=== PATIENT | male | born 1970 | race African-American/Black ===

== ENCOUNTER 2017-11-28 17:45 | Emergency (ER) | payer OTHER ==
[~2017-11-28] VITALS: Ht 172.7 cm; Wt 74.8 kg
[~2017-11-28 17:45] MED LIST: CYCLOBENZAPRINE10 M1 PO; NAPROXEN250 M1 PO
[2017-11-28 18:10] VITALS: BP 134/94
--- NOTE | 2017-11-28 18:45 | RADIOLOGY REPORT ---
EXAMINATION: XR WRIST, LEFT CLINICAL INFORMATION: Left wrist pain. Trauma. COMPARISON: None TECHNIQUE: Four views of the left wrist. FINDINGS: No fracture. No dislocation. Bone and joint are normal. IMPRESSION: Normal left wrist.
--- NOTE | 2017-11-28 19:26 | ED HAND/WRIST INJURY COMPLAINT ---
History of Present Illness General Chief Complaint: Hand or Wrist Injury Stated Complaint: LEFT WRIST INJURY Source: patient Exam Limitations: no limitations Vital Signs & Intake/Output Vital Signs & Intake/Output Vital Signs Date Time Temp Pulse Resp B/P B/P Pulse O2 O2 Flow FiO2 Mean Ox Delivery Rate 11/28 1810 97.8 67 18 134/94 98 Room Air ED Intake and Output 11/29 0000 11/28 1200 Intake Total Output Total Balance Patient 165 lb Weight Allergies Coded Allergies: Penicillins (Severe, CHILDHOOD REACTION PER PT 07/09/17) Reconcile Medications Cyclobenzaprine HCl 10 MG TABLET 1 TAB PO TID back strain Naproxen 250 MG TABLET 1 TAB PO BID back pain Naproxen (Naprosyn) 500 MG TABLET 1 TAB PO BID PRN PAIN Tramadol HCl 50 MG TABLET 1 TAB PO TIDPRN PRN PAIN Triage Note: PT COMPLAINS OF L WRIST PAIN FOR THE PAST 2 DAYS AFTER HITTING IT ON A WALL. DECLINES MEDS Triage Nurses Notes Reviewed? yes Occurred: 2 days Duration: day(s): (2), constant, continues in ED Timing: single episode today Injury Environment: home Severity: moderate, severe Severity Numbers: 8 Pain/Injury Location: Left: Wrist. Context: blow Method of Injury: direct blow No Modifying Factors: none Associated Symptoms: stiffness HPI: 47-year-old male with no past medical history presents for evaluation of left wrist pain. Patient states that he accidentally punched a wall 2 days ago causing pain in the wrist. The pain is located diffusely in the wrist. It's worse with movement or touching the area. He feels like it is also swollen. He has been taking ibuprofen and applying ice without any improvement. He also reports numbness and tingling in all of his fingers. No other injuries. He rates the pain as an 8 out of 10. NO elbow pain shoulder pain or any other injuries. Past History Travel History Traveled to [place] past 21 day No Medical History Any Pertinent Medical History? see below for history Neurological: NONE EENT: NONE Cardiovascular: NONE Respiratory: NONE Gastrointestinal: NONE Hepatic: NONE Renal: NONE Musculoskeletal: NONE Psychiatric: NONE Endocrine: NONE Blood Disorders: NONE Cancer(s): NONE ONCOLOGY RESEARCH RN/Reproductive: NONE Surgical History Surgical History: non-contributory Psychosocial History What is your primary language Kiswahili Tobacco Use: Never used ETOH Use: denies use Illicit Drug Use: denies illicit drug use Family History Hx Contributory? No Review of Systems Review of Systems Constitutional: Reports: no symptoms. EENTM: Reports: no symptoms. Respiratory: Reports: no symptoms. Cardiovascular: Reports: no symptoms. GI: Reports: no symptoms. Genitourinary: Reports: no symptoms. Musculoskeletal: Reports: see HPI, joint pain, joint swelling, muscle pain, muscle stiffness. Skin: Reports: no symptoms. Neurological/Psychological: Reports: no symptoms. Hematologic/Endocrine: Reports: no symptoms. Immunologic/Allergic: Reports: no symptoms. All Other Systems: Reviewed and Negative Physical Exam Physical Exam General Appearance: well developed/nourished, no apparent distress, alert, awake Head: atraumatic, normal appearance Eyes: Bilateral: normal appearance, EOMI. Ears, Nose, Throat: hearing grossly normal Neck: normal inspection, supple, full range of motion Cardiovascular/Respiratory: no respiratory distress Shoulder Left: normal range of motion, normal inspection Shoulder Right: normal range of motion, normal inspection Elbow Left: normal range of motion, normal inspection Elbow Right: normal range of motion, normal inspection Forearm Left: normal range of motion, normal inspection Forearm Right: normal range of motion, normal inspection Wrist Left: normal range of motion (with pain ), the left wrist is diffusely tender to palpation. No bruising swelling or abrasions. No erythema. full range of motion of the wrist is intact with pain. No snuffbox tenderness Wrist Right: normal range of motion, normal inspection Hand Left: normal inspection, normal range of motion, neurovascular supply is intact to the left hand no bruising swelling or abrasions. No tenderness palpation of the hand. Hand Right: normal inspection, normal range of motion Neurologic/Tendon: normal sensation, normal motor functions, normal tendon functions, responds to pain, no evidence tendon injury, no pulse deficit Skin: intact, normal color, warm/dry Progress Differential Diagnosis: contusion, dislocation, fracture, sprain Plan of Care: Orders Procedure Date/time Status Durable Medical Equipment 11/28 1925 Active Patient seen and evaluated. He is reporting pain in the left wrist after punching a wall. There is no abrasions bruising or swelling to the hand or wrist. His wrist is diffusely tender. X-rays are negative for fracture. Patient was treated for contusion/sprain. Advise rest ice elevation depression. He was given a left wrist splint. Naproxen Tylenol as needed for pain. Tramadol for severe pain. Follow-up with primary care doctor and orthopedics. Discussed return precautions patient is nontoxic-appearing and agrees the plan. Diagnostic Imaging: Viewed by Me: Radiology Read. Discussed w/RAD: Radiology Read. Radiology Impression: PATIENT: KRISTIAN HUNG PRESENT AGE: 47 PATIENT ACCOUNT NO: [id number] : 69 LOCATION: [facility] ORDERING PHYSICIAN: Rob Coleman DO SERVICE DATE: 11/28/17 EXAM TYPE: RAD - XRY-WRIST COMPLETE-LEFT EXAMINATION: XR WRIST, LEFT CLINICAL INFORMATION: Left wrist pain. Trauma. COMPARISON: None TECHNIQUE: Four views of the left wrist. FINDINGS: No fracture. No dislocation. Bone and joint are normal. IMPRESSION: Normal left wrist. DICTATED BY: Thong Box MD DATE/TIME DICTATED:11/28/171840 HARDWARE DESIGN ENGINEER:RAFAEL DATE/TIME TRANSCRIBED:11/28/171840 CONFIDENTIAL, DO NOT COPY WITHOUT APPROPRIATE AUTHORIZATION. Departure Departure Disposition: HOME OR SELF CARE Condition: Stable Clinical Impression Primary Impression: Pain in left wrist Referrals: Brigitte CRAFT,Tika Lopez APRN (PCP/Family) Additional Instructions: Rest, avoid excessive physical activity heavy lifting or movement of the wrist. Wear splint. Apply ice for 15-20 minutes every few hours. Use naproxen 500 mg every 12 hours with food as needed for pain. Tramadol for severe pain only. This may cause drowsiness. Make a follow-up with YOUr primary care doctor and provided orthopedic doctor as soon as possible. Monitor symptoms return with any concerns. Departure Forms: Customer Survey General Discharge Information Prescriptions: Current Visit Scripts Naproxen (Naprosyn) 1 TAB PO BID PRN PAIN #30 TAB Tramadol HCl 1 TAB PO TIDPRN PRN PAIN #10 TAB
[2017-11-28] MEDS ORDERED: TRAMADOL HCL50 M1 PO (19:28)
[2017-11-28] MEDS ORDERED: NAPROSYN500 M1 PO (19:28)
== END 2017-11-28 19:34 ==
LOC: ERH 17:45
DX: M25.532 Pain in left wrist (principal)
CPT/HCPCS: 73110-LT